=== PATIENT | female | born 1985 | race Hispanic/Latino ===

== ENCOUNTER 2018-09-03 17:20 | Emergency (ER) | payer MEDICAID ==
[2018-09-03] MEDS ORDERED: Albuterol-Ipratrop 3 mg / 0.5 (3 ml) UD IH STA (18:36)
[2018-09-03 18:43] VITALS: RESP 18; O2SAT 98
--- NOTE | 2018-09-03 18:58 | ED PDOC ---
Arrival/HPI - General Chief Complaint: Weakness/Neurological Deficit Time Seen by Provider: 09/03/18 17:24 Historian: Patient - History of Present Illness Narrative History of Present Illness (Text): 09/03/18 18:30 33 year old female, with no significant past medical history, nkda, who presents to the Emergency department complaining of right facial droop since this morning, with associated right-sided pricking of tongue, right-sided ear pain, mouth is pricking her, and facial numbness. Patient reports she woke up this morning and realized something was off since she was "talking funny" after brushing her teeth and putting her partial dental piece in. Patient states she usually 'talks funny" before she puts her partial dental piece in, but after putting it in she still felt off. Patient notes she went to work and felt the same, with concerned questions from work. Patient states she was not able to smile and when she had a beverage at work and was not able to suck through the straw. Patient's noticed and when he brought her a sandwich, patient states she was barely able to open her mouth to eat the sandwich. Patient states she works Monday to Monday full-time and it can be very stressful at times. Patient denies any fevers, chills, chest pain, shortness of breath, abdominal pain, nausea, vomiting, diarrhea, back pain, neck pain, urinary symptoms, headache, dizziness, or any other complaint. PMD: Carlos Arenas ([facility]) Time/Duration: Other (Pt notes onset as this morning) Symptom Onset: Sudden Symptom Course: Unchanged Activities at Onset: Light Past Medical History - Provider Review Nursing Documentation Reviewed: Yes - Travel History Have you recently traveled outside [place] w/in the past 3 mons?: No - Reproductive Currently : No - Pulmonary Hx Asthma: Yes - Neurological Hx Seizures: Yes - Psychiatric Hx Substance Use: No - Anesthesia Hx Anesthesia: No Hx Anesthesia Reactions: No Hx Malignant Hyperthermia: No Family/Social History - Physician Review Nursing Documentation Reviewed: Yes Family/Social History: No Known Family HX Smoking Status: Never Smoked Hx Alcohol Use: No Hx Substance Use: No Allergies/Home Meds Allergies/Adverse Reactions: Allergies No Known Allergies Allergy (Verified 09/03/18 18:24) Review of Systems - Physician Review All systems were reviewed & negative as marked: Yes - Review of Systems Constitutional: absent: Fevers, Night Sweats ENT: Other (Pt notes right-sided prick of tounge and mouth. Pt notes right-sided ear pain. ). absent: Normal Cardiovascular: Normal. absent: Chest Pain Gastrointestinal: Normal. absent: Abdominal Pain, Diarrhea, Nausea, Vomiting Genitourinary Female: Normal. absent: Urine Output Changes Musculoskeletal: Normal. absent: Back Pain, Neck Pain Neurological: Speech Changes (Pt notes speech changes ), Facial Droop (Pt notes right-sided facial droop since this morning ). absent: Normal, Headache, Dizziness Physical Exam Vital Signs Reviewed: Yes Vital Signs Temp Pulse Resp BP Pulse Ox 09/03/18 18:28 98.2 F 78 18 145/74 98 Temperature: Afebrile Blood Pressure: Normal Pulse: Regular Respiratory Rate: Normal Appearance: Positive for: Well-Appearing, Non-Toxic Pain Distress: Mild Mental Status: Positive for: Alert and Oriented X 3 - Systems Exam Head: Present: Atraumatic, Normocephalic Pupils: Present: PERRL Extroacular Muscles: Present: EOMI Conjunctiva: Present: Normal Mouth: Present: Moist Mucous Membranes Neck: Present: Normal Range of Motion Respiratory/Chest: Present: Clear to Auscultation, Good Air Exchange. No: Respiratory Distress, Accessory Muscle Use Cardiovascular: Present: Regular Rate and Rhythm, Normal S1, S2. No: Murmurs Abdomen: No: Tenderness, Distention, Peritoneal Signs Back: Present: Normal Inspection Upper Extremity: Present: Normal Inspection. No: Cyanosis, Edema Lower Extremity: Present: Normal Inspection. No: Edema Neurological: Present: GCS=15, Speech Normal, Motor Func Grossly Intact (Motor function 5/5 in upper and lower extremities ), Normal Sensory Function, Other (Complete unilateral paralysis of upper and lower right side of face. Flattened right nasolabial fold.) Skin: Present: Warm, Dry, Normal Color. No: Rashes Psychiatric: Present: Alert, Oriented x 3, Normal Insight, Normal Concentration Medical Decision Making ED Course and Treatment: 09/03/18 18:30 Impression: 33 year old female who presents to the emergency department for right facial droop since this morning, with associated right-sided pricking of tongue, right- sided ear pain, mouth is pricking her, and facial numbness. Differential Diagnosis included but are not limited to: --Sullivan's palsy --Trigeminal Neuralgia Plan: -- Labs -- Decadron -- Zovirax -- POC Urine Test -- Urinalysis -- Reassess and disposition Progress Notes: 08/24/18 20:15 Labs reviewed with notable anemia noted on CBC. Patient updated on findings and recalls her previous diagnoses of anemia and desires to follow up with her PCP. Shared decision making with patient on cause of symptoms and medication with understanding the necessity in following up with neurology outpatient. Opportunity for questions given and answered. Scripts provided. She is stable for discharge. - Lab Interpretations Lab Results: 09/03/18 20:02 09/03/18 20:02 Lab Results 09/03/18 20:05: Urine Color Yellow, Urine Appearance Clear, Urine pH 7.0, Ur Specific [place] 1.025, Urine Protein Trace H, Urine Glucose (UA) Negative, Urine Ketones Negative, Urine Blood Large H, Urine Nitrate Negative, Urine Bilirubin Negative, Urine Urobilinogen 0.2, Ur Leukocyte Esterase Negative, Urine RBC Tntc H, Urine WBC 2 - 5, Ur Epithelial Cells 6 - 8 H 09/03/18 20:02: Sodium 142, Potassium 4.2, Chloride 108 H, Carbon Dioxide 26, Anion Gap 12, BUN 17, Creatinine 0.7, Est GFR ( Amer) > 60, Est GFR (Non- Af Amer) > 60, Random Glucose 97, Calcium 9.3, Total Bilirubin 0.3, AST 16, ALT 22, Alkaline Phosphatase 80, Total Protein 7.8, Albumin 4.2, Globulin 3.6, Albumin/Globulin Ratio 1.2 09/03/18 20:02: WBC 5.9, RBC 4.33, Hgb 10.3 L, Hct 34.0 L, MCV 78.5 L, MCH 23.8 L, MCHC 30.3 L, RDW 14.9 H, Plt Count 292, MPV 10.6, Neut % (Auto) 58.9, Lymph % (Auto) 31.0, [place] % (Auto) 8.2 H, Eos % (Auto) 1.7, Baso % (Auto) 0.2, Lymph # (Auto) 1.8, [place] # (Auto) 0.5, Eos # (Auto) 0.1, Baso # (Auto) 0.01, Absolute Neuts (auto) 3.47 I have reviewed the lab results: Yes - Medication Orders Current Medication Orders: Discontinued Medications Acyclovir (Zovirax) 400 mg PO ONCE ONE; Protocol Stop: 09/03/18 18:39 Dexamethasone (Decadron Inj) 10 mg IVP STAT STA Stop: 09/03/18 18:38 - Scribe Statement The provider has reviewed the documentation as recorded by the Scribe Gifty Gallegos All medical record entries made by the Scribe were at my direction and personally dictated by me. I have reviewed the chart and agree that the record accurately reflects my personal performance of the history, physical exam, medical decision making, and the department course for this patient. I have also personally directed, reviewed, and agree with the discharge instructions and disposition. Disposition/Present on Arrival - Present on Arrival Any Indicators Present on Arrival: No History of DVT/PE: No History of Uncontrolled Diabetes: No Urinary Catheter: No History of Decub. Ulcer: No History Surgical Site Infection Following: None - Disposition Have Diagnosis and Disposition been Completed?: Yes Diagnosis: Sullivan's palsy Disposition: HOME/ ROUTINE Disposition Time: 20:43 Patient Plan: Discharge Condition: STABLE Discharge Instructions (ExitCare): Sullivan's Palsy (DC) Print Language: YAKUT Additional Instructions: All medical record entries made by the Scribe were at my direction and perso brandi dictated by me. I have reviewed the chart and agree that the record accurately reflects my personal performance of the history, physical exam, medical decision making, and the department course for this patient. I have also personally directed, reviewed, and agree with the discharge instructions and disposition. Please take medications as prescribed Please follow up with a neurologist to schedule an appointment Prescriptions: Acyclovir 400 mg PO TID 7 Days #21 tablet Methylprednisolone [Medrol Dose Pack (21 tabs)] 4 mg PO DAILY #21 mg Referrals: Carlos Coronado MD [Primary Care Provider] - Follow up with primary Prakash Leach MD [Staff Provider] - Follow up with primary Jigar Hylton MD [Staff Provider] - Follow up with primary Forms: [facility] (Armenian), WORK NOTE
[2018-09-03 20:18] LABS: ALB/GLOB RATIO 1.2 (1.1-1.8); ALBUMIN 4.2 g/dL (3.0-4.8); ALT/SGPT 22 U/L (7-56); AST/SGOT 16 U/L (14-36); BLOOD UREA NITROGEN 17 mg/dL (7-21); CALCIUM 9.3 mg/dL (8.4-10.5); GFR NON-AFRICAN AMERICAN > 60
[2018-09-03 20:25] LABS: URINE BILIRUBIN NEGATIVE (NEGATIVE); URINE BLOOD LARGE (NEGATIVE); URINE GLUCOSE (UA) NEGATIVE (NEGATIVE); URINE LEUKOCYTE ESTERASE NEGATIVE Leu/uL (NEGATIVE); URINE PROTEIN TRACE mg/dL (<30 mg/dL); URINE UROBILINOGEN 0.2 E.U./dL (<1 E.U./dL)
[2018-09-03 20:26] LABS: BASO # 0.01 K/mm3 (0.0-2.0); BASO % 0.2 % (0.0-3.0); EOS # 0.1 (0.0-0.7); EOS % 1.7 % (1.5-5.0); HEMOGLOBIN 10.3 g/dL (12.0-16.0); LYMPH # 1.8 (1.2-3.4); MEAN CELL VOLUME 78.5 fl (80.0-105.0); MEAN CORPUSCULAR HEMOGLOBIN 23.8 pg (25.0-35.0); MEAN CORPUSCULAR HGB CONC 30.3 g/dl (31.0-37.0); MEAN PLATELET VOLUME 10.6 fl (7.0-11.0); MONO # 0.5 (0.1-0.6); MONO % 8.2 % (1.0-6.0); RBC 4.33 10^6/uL (3.5-6.1); RED CELL DISTRIBUTION WIDTH 14.9 % (11.5-14.5); WHITE BLOOD COUNT 5.9 10^3/uL (4.5-11.0)
[2018-09-03 20:28] LABS: URINE APPEARANCE CLEAR (CLEAR); URINE COLOR YELLOW (YELLOW)
[2018-09-03 20:35] LABS: URINE RBC TNTC /hpf (0-2)
[2018-09-03 21:01] VITALS: BP 138/65; PULSE 69; TEMP 98
== END 2018-09-03 21:10 | disposition home or self-care (01) ==
LOC: ED 17:20
DX: G51.0 Bell's palsy (principal)
CPT/HCPCS: 80053; 81001; 81025; 85025; 96374; 99285; J1100; J8499